=== PATIENT | female | born 1935 | race Caucasian/White ===

== ENCOUNTER 2016-10-05 23:43 | Emergency (ER) | payer OTHER ==
[2016-10-06] MEDS ORDERED: ONDANSETRON HCL/PF 4 MG/ 2ML VIAL IVP ONE (00:11)
[2016-10-06] MEDS ORDERED: DEXTROSE 5 % AND 0.9 % NACL 1,000 ML IV ONE (00:20)
[2016-10-06 00:28] LABS: eGFR (African) > 60; eGFR (Non-African) > 60
[2016-10-06 00:29] LABS: BASOPHILS % 0.5 (0.0-1.5); EOSINOPHILS % 2.6 % (0.0-6.8); LYMPHOCYTES # 0.4 # k/uL (0.6-4.0); MEAN CORPUSCULAR HEMOGLOBIN 35.7 pg (28.0-34.0); MONOCYTES # 0.2 # k/uL (0.0-0.9); MONOCYTES % 3.8 % (0.0-11.0)
[2016-10-06] MEDS ORDERED: DEXTROSE 5 % AND 0.9 % NACL 1,000 ML IV SCH (01:00)
[2016-10-06 03:32] VITALS: BP 156/47
--- NOTE | 2016-10-06 06:56 | ED Physician Documentation ---
General Adult - HISTORIAN Historian: patient - HPI Stated Complaint: low blood sugar Chief Complaint: General Adult Additional Information: blood sugar 70 Onset: hours (2) Timing: still present Severity: moderate Modifying Factors: nausea Context: normal daily routine Quality: nausea Location: epigastic area Further Comments: no - ROS CONST: no problems EYES/ENT: none CVS/RESP: none GI/: none MS/SKIN/LYMPH: none NEURO/PSYCH: denies: headache, fainting, dizziness, tingling, numbness, difficulty walking, difficulty with speech, anxiety, depression - PAST HX Past History: hypertension Other History: diabetes Type 2 Surgeries/Procedures: none Immunizations: referred to PCP Allergies/Adverse Reactions: Allergies Allergy/AdvReac Type Severity Reaction Status Date / Time No Known Allergies Allergy Verified 10/06/16 00:06 Home Medications: Ambulatory Orders Medication Instructions Recorded Acetaminophen [Tylenol Extra 1,000 mg PO QDAY 11/01/14 Strength] Alendronate Sodium [Fosamax] 70 mg PO WEEK 11/01/14 Aspirin [Abigail] 81 mg PO DAILY 11/01/14 Atorvastatin Calcium [Lipitor] 40 mg PO QDAY 11/01/14 Clonidine HCl [Catapres] 0.1 mg PO BID 11/01/14 Clopidogrel Bisulfate [Plavix] 75 mg PO QD 11/01/14 Diclofenac Sodium [Voltaren] 75 mg PO BID 11/01/14 Furosemide [Lasix] 40 mg PO BID 11/01/14 Insulin Aspart [Novolog] 7 unit SQ TID 11/01/14 Levothyroxine Sodium [Synthroid] 75 mcg PO 7HS 11/01/14 Lisinopril [Prinivil] 20 mg PO QD 11/01/14 Loratadine [Claritin] 10 mg PO 7HS 11/01/14 Multivitamin [Tab-A-German] 1 each PO DAILY 11/01/14 Potassium Chloride [Kaochlor] 99 meq PO DAILY 11/01/14 traZODone HCL [Desyrel] 50 mg PO HS 11/01/14 Insulin Glargine,Hum.rec.anlog 17 unit SQ AM 10/06/16 [Lantus Solostar] - SOCIAL HX Smoking History: non-smoker Alcohol Use: none Drug Use: none - FAMILY HX Family History: Yes - VITAL SIGNS Vital Signs: Vital Signs Temp Pulse Resp BP Pulse Ox 98.6 F 98 H 16 156/47 98 10/06/16 01:40 10/06/16 01:40 10/06/16 01:40 10/06/16 01:40 10/06/16 01:40 - REVIEWED ASSESSMENTS Nursing Assessment Reviewed: Yes Vitals Reviewed: Yes Progress - Results/Orders Results/Orders: see orders - Progress Progress: pt. stable entire time in er Critical Care Note - Critical Care Note Total Time (mins): 0 ED Results Lab/Radiology - Lab Results Lab Results: Lab Results 10/06/16 10/06/16 00:09 00:09 WBC 5.80 K/ul K/ul (4.00-12.00) RBC 3.49 M/ul L M/ul (3.90-5.20) Hgb 12.5 g/dL g/dL (12.0-16.0) Hct 37.3 % % (34.5-46.5) MCV 106.8 fl H fl (80.0-100.0) MCH 35.7 pg H pg (28.0-34.0) MCHC 33.4 g/dL g/dL (30.0-36.0) RDW 13.9 % % (11.3-14.3) Plt Count 255 K/mm3 K/mm3 (130-400) Neut % (Auto) 86.3 % H % (39.0-79.0) Lymph % (Auto) 6.1 % L % (16.0-50.0) [place] % (Auto) 3.8 % % (0.0-11.0) Eos % (Auto) 2.6 % % (0.0-6.8) Baso % (Auto) 0.5 (0.0-1.5) Neut # 5.0 # k/uL # k/uL (1.4-7.7) Lymph # 0.4 # k/uL L # k/uL (0.6-4.0) [place] # 0.2 # k/uL # k/uL (0.0-0.9) Eos # 0.2 # k/uL # k/uL (0.0-0.6) Baso # 0.0 # k/uL # k/uL (0.0-0.5) Reactive Lymphs % 0.6 % % (0.0-5.0) Reactive Lymphs # 0.0 # k/uL # k/uL (0.0-0.8) Sodium 137 mmol/L mmol/L (136-145) Potassium 4.3 mmol/L mmol/L (3.5-5.0) Chloride 109 mmol/L mmol/L (98-110) Carbon Dioxide 29 mmol/L mmol/L (20-32) BUN 39 mg/dL H mg/dL (10-26) Creatinine 1.1 mg/dL mg/dL (0.4-1.5) Estimated Creat Clear 35 Est GFR ( Amer) > 60 (60 - ) Est GFR (Non-Af Amer) > 60 (60 - ) Glucose 86 mg/dL mg/dL (70-99) Calcium 10.8 mg/dL H mg/dL (8.5-10.5) Total Bilirubin 0.4 mg/dL mg/dL (0.2-1.2) AST 26 U/L U/L (0-41) ALT 21 U/L U/L (0-45) Alkaline Phosphatase 66 U/L U/L (46-116) Total Protein 8.0 g/dL g/dL (6.0-8.5) Albumin 4.9 g/dL g/dL (3.0-5.5) Amylase 158 U/L H U/L (20-104) - Radiology Radiology Impressions: see report - Orders Orders: ED Orders Category Date Time Status Place Saline Lock/IV Now Care 10/06/16 00:09 Active AMYLASE Routine Lab 10/06/16 00:09 Completed CBC/PLATELET/DIFF Routine Lab 10/06/16 00:09 Completed CMP Routine Lab 10/06/16 00:09 Completed URINALYSIS Routine Lab 10/06/16 00:09 Ordered Chem Sticks Med 10/06/16 07:30 Discontinued 1 each CHEMQ Chem Sticks Med 10/06/16 07:30 Ordered 1 each CHEMQID Dextrose 5 % and 0.9 % NaCl [D5ns] 1,000 ml Med 10/06/16 00:20 Discontinued IV .STK-MED Dextrose 5 % and 0.9 % NaCl [D5ns] 1,000 ml Med 10/06/16 01:00 Discontinued IV Q8H Ondansetron HCl/Pf [Zofran 4 mg/2 ml] Med 10/06/16 00:11 Discontinued 8 mg IVP NOW ONE General Adult Physical Exam - PHYSICAL EXAM GENERAL APPEARANCE: no distress EENT: eye inspection normal, ENT inspection normal, pharynx normal, no signs of dehydration, UGO, no nystagmus, TM's nml NECK: normal inspection, thyroid normal, supple RESPIRATORY: no resp distress, chest non-tender, breath sounds normal CVS: reg rate & rhythm, heart sounds normal, equal pulses, no murmur, no gallop , PMI nml, no JVD ABDOMEN: soft, no organomegaly, normal bowel sounds, no abdominal bruit, no distension, non-tender BACK: normal inspection, no CVA tenderness SKIN: warm/dry, normal color EXTREMITIES: non-tender, normal range of motion, no evidence of injury, no edema NEURO: oriented X3, CN's nml as tested, motor nml, sensation nml, mood/affect nml, cognition normal Discharge Clincal Impression: Hypoglycemia Referrals: Paul Forbes MD [Primary Care Provider] - 2 Days Home Medications: Ambulatory Orders Acetaminophen [Tylenol Extra Strength] 1,000 mg PO QDAY 11/01/14 Alendronate Sodium [Fosamax] 70 mg PO WEEK 11/01/14 Aspirin [Abigail] 81 mg PO DAILY 11/01/14 Atorvastatin Calcium [Lipitor] 40 mg PO QDAY 11/01/14 Clonidine HCl [Catapres] 0.1 mg PO BID 11/01/14 Clopidogrel Bisulfate [Plavix] 75 mg PO QD 11/01/14 Diclofenac Sodium [Voltaren] 75 mg PO BID 11/01/14 Furosemide [Lasix] 40 mg PO BID 11/01/14 Insulin Aspart [Novolog] 7 unit SQ TID 11/01/14 Levothyroxine Sodium [Synthroid] 75 mcg PO 7HS 11/01/14 Lisinopril [Prinivil] 20 mg PO QD 11/01/14 Loratadine [Claritin] 10 mg PO 7HS 11/01/14 Multivitamin [Tab-A-German] 1 each PO DAILY 11/01/14 Potassium Chloride [Kaochlor] 99 meq PO DAILY 11/01/14 traZODone HCL [Desyrel] 50 mg PO HS 11/01/14 Insulin Glargine,Hum.rec.anlog [Constance Diaz] 17 unit SQ AM 10/06/16 Comments: discharged with scripts Condition: Stable Disposition: 01 HOME, SELF-CARE Decision to Admit: NO Decision Time: 01:35
== END 2016-10-06 00:40 | disposition home or self-care (01) ==
LOC: ED 23:43
DX: E11.649 Type 2 diabetes mellitus with hypoglycemia without coma (principal); Z79.4 Long term (current) use of insulin; I10 Essential (primary) hypertension
CPT/HCPCS: 80053; 82150; 85025; J2405; J7042; 96361; 96374; 99283; 99284; S1016

== ENCOUNTER 2018-11-18 09:44 | Outpatient (CLI) | payer OTHER ==
[2018-11-18 10:29] LABS: eGFR (Non-African) > 60
--- NOTE | 2018-11-18 10:30 | Diagnostic Imaging Report ---
SABRA ALEGRIA [facility] [address] [facility].[address] [address] Report Submission Date: Nov 18, 2018 10:26:35 AM CDT Patient Study Name: MARCELINA ORELLANA Date: Nov 18, 2018 10:03:03 AM CDT Modality Type: DX Gender: F Description: CHEST 2VIEW : 31 Institution: [facility] Physician: SABRA ALEGRIA Exam: Chest 2 views. History: Cough. No previous studies are available for comparison. Lung shah are hyperaerated with flattening of the diaphragms noted. No johnson consolidation or effusion is seen. Heart size is normal with atherosclerotic plaque seen in the aorta. Sternotomy wires indicate previous thoracotomy. Impression: No johnson consolidation or effusion. Electronically signed on Nov 18, 2018 10:26:35 AM CDT by: Timbo DUENAS
== END 2018-11-18 09:46 ==
LOC: LAB 09:44
PROVIDERS: ATTEND Family Medicine
DX: E11.9 Type 2 diabetes mellitus without complications (principal); I10 Essential (primary) hypertension; R05 Cough; Z79.4 Long term (current) use of insulin
CPT/HCPCS: 36415; 71046; 80053; 80061; 82043; 83036; 84443

== ENCOUNTER 2019-06-25 13:22 | Inpatient (IN) | payer OTHER ==
--- NOTE | 2019-06-25 13:58 | ED Physician Documentation ---
General Adult - HISTORIAN Historian: patient, spouse - HPI Stated Complaint: leg swelling Chief Complaint: General Adult Onset: days ago Timing: still present Severity: moderate Further Comments: yes (Pt is an 83 yo female with b/l leg swelling, which is painful. Pain has been getting worse for several days. Pt has been using support hose and keeping legs elevated, which usually helps, but now it has not been helping. Pt has some redness and soreness at ankles and feet b/l. Pt states that the weight of her sheets and blankets is painfule to her legs. Pt does not c/o sob or chest pain.) - ROS CONST: no problems EYES/ENT: none CVS/RESP: none MS/SKIN/LYMPH: leg swelling (b/l) - PAST HX Past History: other (CAD, CHF, HLD, HTN, Neuropathy, DM, hypothyroidism) Surgeries/Procedures: cardiac bypass, cardiac stent, hysterectomy, other (tonsillectomy) Allergies/Adverse Reactions: Allergies Allergy/AdvReac Type Severity Reaction Status Date / Time Penicillins Allergy Verified 06/25/19 13:55 Home Medications: Ambulatory Orders Medication Instructions Recorded Acetaminophen [Tylenol Extra 1,000 mg PO QDAY 11/01/14 Strength] Alendronate Sodium [Fosamax] 70 mg PO WEEK 11/01/14 Aspirin [Abigail] 81 mg PO DAILY 11/01/14 Atorvastatin Calcium [Lipitor] 40 mg PO QDAY 11/01/14 Clonidine HCl [Catapres] 0.1 mg PO BID 11/01/14 Clopidogrel Bisulfate [Plavix] 75 mg PO QD 11/01/14 Diclofenac Sodium [Voltaren] 75 mg PO BID 11/01/14 Furosemide [Lasix] 40 mg PO BID 11/01/14 Insulin Aspart [Novolog] 7 unit SQ TID 11/01/14 Levothyroxine Sodium [Synthroid] 75 mcg PO 7HS 11/01/14 Lisinopril [Prinivil] 20 mg PO QD 11/01/14 Loratadine [Claritin] 10 mg PO 7HS 11/01/14 Multivitamin [Tab-A-German] 1 each PO DAILY 11/01/14 Potassium Chloride [Kaochlor] 99 meq PO DAILY 11/01/14 traZODone HCL [Desyrel] 50 mg PO HS 11/01/14 Insulin Glargine,Hum.rec.anlog 17 unit SQ AM 10/06/16 [Constance Diaz] - SOCIAL HX Smoking History: non-smoker - FAMILY HX Family History: No - VITAL SIGNS Vital Signs: Vital Signs Temp Pulse Resp BP Pulse Ox 156/47 10/06/16 01:40 - REVIEWED ASSESSMENTS Nursing Assessment Reviewed: Yes Vitals Reviewed: Yes Progress - Progress Progress: lasix 20 mg IV regular insulin 4 mg SC admit to Dr. Forbes, b/l LE edema, ? early LE cellulitis, hyperglycemia, dehydration, elevated BNP - EKG/XRAY/CT EKG: NSR (HR= 69, LBBB) XRAY: chest (cardiomegally, no infiltrate, no effusion) General Adult Physical Exam - PHYSICAL EXAM GENERAL APPEARANCE: moderate distress EENT: pharynx normal NECK: normal inspection RESPIRATORY: no resp distress, chest non-tender, breath sounds normal CVS: reg rate & rhythm, heart sounds normal ABDOMEN: soft, no organomegaly, normal bowel sounds BACK: normal inspection, no CVA tenderness SKIN: warm/dry, other (erythema b/l ankles/feet) EXTREMITIES: edema (2+ b/l LE edema, tender to touch) NEURO: oriented X3, motor nml, sensation nml Discharge Clincal Impression: DM, Hyperglycemia, elevated BNP, b/l LE edema, possible early cellulitis, dehydration Referrals: Paul Forbes MD [Primary Care Provider] - Condition: Stable Disposition: XFER [facility] Decision to Admit: [id number] Decision Time: 16:35
[2019-06-25 14:14] LABS: eGFR (Non-African) 41
[2019-06-25 14:16] LABS: BASOPHILS % 0.4 % (0.0-1.5); NEUTROPHILS # 4.5 # k/uL (1.4-7.7)
[2019-06-25] MEDS: FUROSEMIDE 40 MG/4 ML VIAL IVP ONE ×2 (15:31→15:33)
--- NOTE | 2019-06-25 15:44 | Diagnostic Imaging Report ---
PATIENT MR#: [id number] PATIENT PATIENT NAME: MARCELINA ORELLANA DATE OF : 1935 REFERRING PHYSICIAN: Aguila Mckeon EXAM DATE: 06/25/2019 ACCESSION NUMBER: [id number] EXAM DESCRIPTION: CHEST 1VIEW CHEST ONE VIEW CLINICAL INDICATION: WEAKNESS AND SWELLING BILAT LEGS HX OF BYPASS (Hx) / Note time : 06/25/2019 3:33:19 PM User : Deena Schmitz WEAKNESS AND SWELLING BILAT LEGS HX OF BYPASS (DICOM Hx) (D ICOM Hx) FINDINGS: Frontal view of the chest compared to prior for November 18, 2017 shows hyperinflated lung shah bila terally. There is no consolidation, pleural effusion or pneumothorax. Heart size is enlarged. There is atherosclerotic calcification to the thoracic aorta. Midline sternal wires are present. IMPRESSION: Hyper-inflated lung field without consolidation Cardiomegaly Read by: Dr. Perico Ryan Transcribed by: Transcribed Date: Electronically signed by: Dr. Perico Ryan Date signed: 06/25/2019 3:43:36 PM
--- NOTE | 2019-06-25 15:45 | Diagnostic Imaging Report ---
PATIENT MR#: [id number] PATIENT PATIENT NAME: MARCELINA ORELLANA DATE OF : 1935 REFERRING PHYSICIAN: Aguila Mckeon EXAM DATE: 06/25/2019 ACCESSION NUMBER: [id number] EXAM DESCRIPTION: US U OR L EXT VEINS BILAT *Ultrasound bilateral lower extremity venous duplex Doppler Indication: BILAT VLE, NO EVIDENCE FOR DVT (Hx) / Note time : 06/25/2019 3:39:05 PM User : Juanis Mendoza BILAT VLE, NO EVIDENCE FOR DVT (DICOM Hx) (DICOM Hx) Findings: Ultrasonographic examination with spectral analysis demonstrates the bilateral common femoral veins, superficial femoral veins, popliteal and peroneal veins to be normal in color-flow, compressibility, Doppler wave form an d augmentation. Normal color-flow to the bilateral posterior tibial veins is demonstrated. There is no evidence of de ep venous thrombosis Impression: No evidence of deep venous thrombosis. Read by: Dr. Perico Ryan Transcribed by: Transcribed Date: Electronically signed by: Dr. Perico Ryan Date signed: 06/25/2019 3:44:36 PM
[2019-06-25] MEDS ORDERED: INSULIN REGULAR, HUMAN 100 UNIT/ML 10ML VIAL SQ ONE ×3 (15:50→18:00)
[2019-06-25] MEDS ORDERED: SENNOSIDES/DOCUSATE 8.6/50 MG 1 EACH TABLET PO PRN (17:30)
[2019-06-25] MEDS: 0.9 % SODIUM CHLORIDE 1,000 ML IV SCH (18:49)
[2019-06-25 18:55] VITALS: BMI 19.3
--- NOTE | 2019-06-25 20:05 | History and Physical Report ---
History of Present Illnes - History of Present Illness Reason for Visit: pain in legs History of Present Illness: 83-year-old white female who states the last night she started to develop some pain in her legs bilaterally. Patient stated the pain began in the left lower leg associated with some redness and tenderness. Patient denies any fever or chills. Patient stated the pain did move over into the right leg earlier this morning. Patient denies any precipitating factor that she is aware. Patient does have some chronic intermittent peel edema. Patient stated she developed some swelling in her legs. Patient could not stand have any pressure against the legs. Patient subsequently came to the emergency room for further evaluation and treatment. Patient denies any trauma or bites to the leg that she is aware. In the ED patient was felt to possibly have some congestive heart failure bec ause of some cardiomegaly seen on a chest x-ray and elevated BNP. However patient denies that she was have any orthopnea symptoms shortness of breath chest pain chest pressure cough. Patient states that the swelling in her legs have been worse but she is not even anything that has a lot of salt in it. Patient does have diabetes mellitus and chronic renal insufficiency. Patient was noted to have some erythema and tenderness to her lower leg. It was felt that she was possibly developing an early cellulitis. Patient being diabetic have a history of coronary artery disease and because of her age and debilitated condition it was elected to go ahead and admitted to the hospital for further care and evaluation. 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) ENT: Other (tinnitus) Renal/: Chronic renal insuff, Other (chronic recurrent UTIs) Endocrine: Diabetes (type 2 with retinopathy), Hypothyroidism - Past Surgical History Past Surgical History: CABG, Cataract Removal, Hysterectomy, Other (tonsil and adenoiectomy, arthroscopy left knee, Cardiac stinting 3 vessels) - Past Family History Mother Family History: Father Family History: Sister 1 Family History: Other (celiac disease) - Past Social History Smoke: No Occupation: retired Alcohol: None Drugs: None Lives: Alone Domestic Violence: Negative - Health Maintenance Health Maintenance: Cholesterol, Influenza Vaccine, Pneumococcal Vaccine Influenza Vaccine: Current for this Influenza Season Pneumonia Vaccine: Yes - Unable to Obtain History Unable to Obtain: No Review of Systems - Review of Systems Constitutional: negative: Fever, Chills, Sweats, Weakness Eyes: negative: pain, vision change, conjunctivae inflammation ENT: Other (chronic tinnitus). negative: Ear Pain, Ear Discharge, Nose Pain, Nose Discharge, Nose Congestion, Mouth Pain, Mouth Swelling, Throat Pain, Throat Swelling Respiratory: negative: Cough, Dry, Shortness of Breath, SOB with Excertion, Sputum, Wheezing Cardiovascular: negative: Chest Pain, Palpitations, Paroxysmal Noc. Dyspnea, Light Headedness Gastrointestinal: negative: Nausea, Vomiting, Abdominal Pain, Diarrhea, Constipation, Melena, Hematochezia Genitourinary: negative: Dysuria, Frequency, Incontinence, Hematuria, Retention Musculoskeletal: negative: Neck Pain, Shoulder Pain, Arm Pain, Back Pain Skin: Rash Neurological: negative: Weakness, Numbness, Incoordination, Confusion, Seizures - Medications/Allergies Allergies/Adverse Reactions: Allergies Allergy/AdvReac Type Severity Reaction Status Date / Time Penicillins Allergy Verified 06/25/19 13:55 Home Medications: Home Medications Calcium Carb 600Mg [Caltrate] 600 mg PO DAILY 06/25/19 Clonidine HCl [Catapres] 2 tab PO HS 06/25/19 Furosemide [Lasix] 20 mg PO 1300 06/25/19 Insulin Glargine,Hum.rec.anlog [Loren Gee-Ayo] 16 unit SQ AM 06/25/19 Sennosides/Docusate Sodium [Docusate Sodium-Senna Tablet] 2 tab PO PRN PRN 06/25/19 amLODIPine BESYLATE [Norvasc] 2.5 mg PO DAILY 06/25/19 Current Inpatient Medications: Current Inpatient Medications Acetaminophen (Tylenol Extra Strength) 1,000 mg PO QDAY [facility] Stop: 07/26/19 08:59 Amlodipine Besylate (Norvasc) 2.5 mg PO DAILY [facility] Stop: 07/26/19 08:59 Aspirin (Abigail) 81 mg PO DAILY [facility] Stop: 07/26/19 08:59 Atorvastatin Calcium (Lipitor) 40 mg PO HS [facility] Stop: 07/25/19 20:59 Clonidine HCl (Catapress) mg PO AM [facility] Stop: 07/26/19 08:59 Clonidine HCl (Catapress) 0.2 mg PO HS [facility] Stop: 07/25/19 20:59 Furosemide (Lasix) 40 mg IVP Q12H [facility] Stop: 07/26/19 07:59 Gabapentin (Neurontin) 100 mg PO QID [facility] Stop: 07/25/19 20:59 Levofloxacin/Dextrose (Levaquin) 250 mg in 50 mls @ 100 mls/hr IV Q24H [facility] Stop: 07/25/19 17:29 Sodium Chloride (Normal Saline) 1,000 mls @ 100 mls/hr IV Q10H [facility] Stop: 07/25/19 17:29 Last Admin: 06/25/19 18:49 Dose: 100 mls/hr Insulin Aspart (Novolog) 0 unit SQ TID [facility]; Protocol Stop: 07/25/19 18:59 Insulin Glargine (Basaglar Kwik-Pen) 16 unit SQ AM [facility] Stop: 07/26/19 08:59 Levothyroxine Sodium (Synthroid) 75 mcg PO 0700 [facility] Stop: 07/26/19 06:59 Lisinopril (Prinivil) 20 mg PO BID [facility] Stop: 07/25/19 20:59 Loratadine (Claritin) 10 mg PO HS [facility] Stop: 07/25/19 20:59 Multivitamins (Tab-A-German) 1 each PO DAILY [facility] Stop: 07/26/19 08:59 Nitrofurantoin Macrocrystals (Macrobid) 50 mg PO DAILY [facility] Stop: 07/26/19 08:59 Senna/Docusate Sodium (Senna Plus Tablet) each PO PRN PRN PRN Reason: Constipation Stop: 07/25/19 17:29 Exam - Exam Vital Signs: Vital Signs (72 hours) 06/25/19 06/25/19 06/25/19 13:30 18:08 18:50 Temperature 99.4 F 99.3 F 99.3 F Pulse Rate [ 90 Right Pulse ox] Pulse Rate [ 86 86 Right] Respiratory 16 18 18 Rate Blood Pressure 167/39 144/55 [Right Arm] O2 Sat by Pulse 99 100 100 Oximetry 06/25/19 18:57 Temperature 99.2 F Pulse Rate [ Right Pulse ox] Pulse Rate [ 57 L Right] Respiratory 16 Rate Blood Pressure 165/42 [Right Arm] O2 Sat by Pulse 100 Oximetry General: Alert, Oriented to Person, Oriented to Place, Oriented to Time, Cooperative, Mild distress HEENT: Atraumatic, PERRLA, EOMI, Mouth Mucous membr. moist/[place], Nose Mucous membr. moist/[place] Neck: Normal Range of Motion Carotids: WNL Thyroid: WNL Lungs: Clear to auscultation, Normal air movement, Speaks full Sentences Cardiovascular: Regular rate, Normal S1, Normal S2, No murmurs Murmur: Diastolic Murmur (mitral regurgitation) Murmur Location: [place] [facility] Murmur Grade: II Abdomen: Normal bowel sounds, Soft, No tenderness, No hepatospenomegaly, No masses Integumentary: Normal, [place], Warm, Dry Extremities: No clubbing, No cyanosis, No edema, Normal pulses, No tenderness/swelling Neurological: Normal gait, Normal speech, Strength Equal Bilat, Normal tone, Sensation intact, Cranial nerves 3-12 NL, Reflexes 2+ Psych/Mental Status: Mental status NL, Mood NL, Appropriate Affect, Intact Judgment - Laboratory Results Laboratory Results: Laboratory Results 06/25/19 06/25/19 06/25/19 14:00 14:00 14:00 WBC 6.40 RBC 3.25 L Hgb 11.6 Hct 33.7 L MCV 104.0 H MCH 35.7 H MCHC 34.4 RDW 12.5 Plt Count 222 Neut % (Auto) 70.1 Lymph % (Auto) 14.1 L [place] % (Auto) 13.9 H Eos % (Auto) 1.5 Baso % (Auto) 0.4 Neut # (Auto) 4.5 Lymph # (Auto) 0.9 [place] # (Auto) 0.9 Eos # (Auto) 0.1 Baso # (Auto) 0.0 PT 10.7 INR 1.03 APTT 25.5 D-Dimer Sodium 139 Potassium 4.2 Chloride 100 Carbon Dioxide 28 Anion Gap 15.2 BUN 55 H Creatinine 1.30 H Est GFR ( Amer) > 60 Est GFR (Non-Af Amer) 41 L Glucose 399 H Calcium 9.6 Total Bilirubin 0.6 AST 49 H ALT 28 Alkaline Phosphatase 73 Troponin I NT-Pro-B Natriuret Pep Total Protein 7.7 Albumin 4.5 06/25/19 14:00 WBC RBC Hgb Hct MCV MCH MCHC RDW Plt Count Neut % (Auto) Lymph % (Auto) [place] % (Auto) Eos % (Auto) Baso % (Auto) Neut # (Auto) Lymph # (Auto) [place] # (Auto) Eos # (Auto) Baso # (Auto) PT INR APTT D-Dimer 615 Sodium Potassium Chloride Carbon Dioxide Anion Gap BUN Creatinine Est GFR ( Amer) Est GFR (Non-Af Amer) Glucose Calcium Total Bilirubin AST ALT Alkaline Phosphatase Troponin I 0.024 NT-Pro-B Natriuret Pep 2360.2 H Total Protein Albumin Assessment/Plan - Assessment/Plan (1) Cellulitis of leg without foot, left Status: Acute Current Visit: Yes (2) Cellulitis of leg without foot, right Status: Acute Current Visit: Yes (3) Essential hypertension Status: Acute Current Visit: Yes (4) CAD (coronary artery disease) Status: Acute Current Visit: Yes (5) PVD (peripheral vascular disease) Status: Acute Current Visit: Yes (6) Diabetes type 2, uncontrolled Status: Acute Current Visit: Yes VTE Assessment - RISK FACTOR SCORE VTE RISK FACTOR SCORES: AGE OVER 60 YEARS, ANTICIPATED BED CONFINEMENT OR IMMOBILIZATION > 24 HOURS - RISK VTE MODERATE RISK: SCORE OF 2 (RISK PROXIMAL DVT 2-4%) PROPHYAXIS NEEDED
[2019-06-25] MEDS ORDERED: cloNIDine HCL 0.1 MG TABLET PO SCH (21:00)
[2019-06-25] MEDS ORDERED: LORATADINE 10 MG TABLET PO SCH (21:00)
[2019-06-25] MEDS ORDERED: ATORVASTATIN CALCIUM 20 MG TABLET PO SCH (21:00)
[2019-06-25] MEDS: GABAPENTIN 100 MG CAPSULE PO SCH (21:10)
[2019-06-25] MEDS: LISINOPRIL 20 MG TABLET PO SCH (21:14)
[2019-06-25] MEDS: INSULIN ASPART 100 UNIT/ML INSULN.PEN SQ SCH (22:00)
[2019-06-26] MEDS: 0.9 % SODIUM CHLORIDE 1,000 ML IV SCH (03:55)
[2019-06-26 06:30] LABS: APPEARANCE,URINE CLEAR (CLEAR); COLOR,URINE YELLOW (YELLOW); OCCULT BLOOD,URINE NEGATIVE (NEGATIVE); UROBILINOGEN URINE 0.2 Eu (0.2-1.0)
[2019-06-26] MEDS ORDERED: LEVOTHYROXINE SODIUM 50 MCG TABLET PO SCH (07:00)
[2019-06-26 07:01] LABS: BASOPHILS % 0.4 % (0.0-1.5); NEUTROPHILS # 1.7 # k/uL (1.4-7.7); eGFR (Non-African) > 60
[2019-06-26] MEDS ORDERED: INSULIN REGULAR, HUMAN 100 UNIT/ML 10ML VIAL SQ SCH (07:30)
[2019-06-26] MEDS ORDERED: FUROSEMIDE 40 MG/4 ML VIAL IVP SCH (08:00)
[2019-06-26] MEDS ORDERED: LISINOPRIL 20 MG TABLET PO ONE (08:38)
[2019-06-26] MEDS ORDERED: POTASSIUM CHLORIDE 20 MEQ TABLET.ER ONE (08:38)
[2019-06-26] MEDS ORDERED: INSULIN GLARGINE,HUM.REC.ANLOG 100 UNIT/ML PEN.INJCTR SQ ONE (08:40)
[2019-06-26] MEDS: GABAPENTIN 100 MG CAPSULE PO SCH (08:51)
[2019-06-26] MEDS: LISINOPRIL 20 MG TABLET PO SCH (08:51)
[2019-06-26] MEDS: INSULIN ASPART 100 UNIT/ML INSULN.PEN SQ SCH (08:58)
[2019-06-26] MEDS ORDERED: ASPIRIN 81 MG CHEW TAB PO SCH (09:00)
[2019-06-26] MEDS ORDERED: INSULIN GLARGINE,HUM.REC.ANLOG 100 UNIT/ML PEN.INJCTR SQ SCH (09:00)
[2019-06-26] MEDS ORDERED: ENOXAPARIN SODIUM 30 MG/0.3 ML DISP.SYRIN SQ SCH (09:00)
[2019-06-26] MEDS ORDERED: POTASSIUM CHLORIDE 20 MEQ TABLET.ER PO SCH (09:00)
[2019-06-26] MEDS ORDERED: amLODIPine BESYLATE 5 MG TABLET PO SCH (09:00)
[2019-06-26] MEDS ORDERED: NITROFURANTOIN MONO/MACRO 100 MG CAPSULE PO SCH (09:00)
[2019-06-26] MEDS ORDERED: ACETAMINOPHEN 500 MG TABLET PO SCH (09:00)
[2019-06-26] MEDS ORDERED: MULTIVITAMIN 1 EACH TABLET PO SCH (09:00)
[2019-06-26] MEDS ORDERED: cloNIDine HCL 0.1 MG TABLET PO SCH (09:00)
[2019-06-26 09:34] VITALS: BP 144/50
[2019-06-26] MEDS ORDERED: INSULIN ASPART 100 UNIT/ML INSULN.PEN SQ SCH (12:30)
--- NOTE | 2019-07-07 15:18 | Discharge Summary ---
Discharge Summary - Discharge [facility] Admission Date: 06/25/19 (Acute care) Discharge Date: 06/26/19 (Home) Discharge To: Home History of Present Illness: 83-year-old white female who states the last night she started to develop some pain in her legs bilaterally. Patient stated the pain began in the left lower leg associated with some redness and tenderness. Patient denies any fever or chills. Patient stated the pain did move over into the right leg earlier this morning. Patient denies any precipitating factor that she is aware. Patient does have some chronic intermittent peel edema. Patient stated she developed some swelling in her legs. Patient could not stand have any pressure against the legs. Patient subsequently came to the emergency room for further evaluation and treatment. Patient denies any trauma or bites to the leg that she is aware. In the ED patient was felt to possibly have some congestive heart failure because of some cardiomegaly seen on a chest x-ray and elevated BNP. However patient denies that she was have any orthopnea symptoms shortness of breath chest pain chest pressure cough. Patient states that the swelling in her legs have been worse but she is not even anything that has a lot of salt in it. Patient does have diabetes mellitus and chronic renal insufficiency. Patient was noted to have some erythema and tenderness to her lower leg. It was felt that she was possibly developing an early cellulitis. Patient being diabetic have a history of coronary artery disease and because of her age and debilitated condition it was elected to go ahead and admitted to the hospital for further care and evaluation. Condition at Discharge: Stable Home Medications: Ambulatory Orders Medication Instructions Recorded Acetaminophen [Tylenol Extra 1,000 mg PO QDAY 11/01/14 Strength] Aspirin [Abigail] 81 mg PO DAILY 11/01/14 Atorvastatin Calcium [Lipitor] 40 mg PO QDAY 11/01/14 Clonidine HCl [Catapres] 1 tab PO AM 11/01/14 Furosemide [Lasix] 40 mg PO AM 11/01/14 Insulin Aspart [Novolog] 1 unit SQ DIRECTED 11/01/14 Levothyroxine Sodium [Synthroid] 75 mcg PO HS 11/01/14 Lisinopril [Prinivil] 20 mg PO BID 11/01/14 Loratadine [Claritin] 10 mg PO HS 11/01/14 Multivitamin [Tab-A-German] 1 each PO DAILY 11/01/14 Potassium Chloride [Kaochlor] 99 meq PO DAILY 11/01/14 Calcium Carb 600Mg [Caltrate] 600 mg PO DAILY 06/25/19 Clonidine HCl [Catapres] 2 tab PO HS 06/25/19 Furosemide [Lasix] 20 mg PO 1300 06/25/19 Insulin Glargine,Hum.rec.anlog 16 unit SQ AM 06/25/19 [Basaglar Kwik-Pen] Sennosides/Docusate Sodium 2 tab PO PRN PRN 06/25/19 [Docusate Sodium-Senna Tablet] amLODIPine BESYLATE [Norvasc] 2.5 mg PO DAILY 06/25/19 Consultations this Visit: None Procedures this Visit: None Allergies/Adverse Reactions: Allergies Allergy/AdvReac Type Severity Reaction Status Date / Time Penicillins Allergy Verified 06/25/19 13:55 Discharge Summary: 83-year-old white female who is admitted to the emergency room. Patient was found to have cellulitis to her lower extremity. Patient was started on IV Lev aquin. Venous Doppler study was done to rule out possible DVTs. patient did remained afebrile during the hospital stay. Within 24 hours patient legs were improving and looked less erythematous and less warm than on admission. P patient was subsequently discharged home in stable condition.atient wanted to be discharged home even though she was advised to stay for a another day. Patient was maintained on her Macrobid for her urinary tract infection that she had prior to admission. - Final Diagnosis (1) Cellulitis of leg without foot, left Problems: Improved (2) Cellulitis of leg without foot, right Problems: Improved (3) Essential hypertension Problems: Stable on home medication (4) CAD (coronary artery disease) Problems: Stable on home medication
== END 2019-06-26 11:27 | disposition home or self-care (01) | DRG 603 ==
LOC: ED 13:22 → SOUTH 17:44
PROVIDERS: ADMIT Family Medicine; ATTEND Family Medicine
DX: L03.116 Cellulitis of left lower limb (principal); I13.0 Hypertensive heart and chronic kidney disease with heart failure and stage 1 through stage 4 chronic kidney disease, or unspecified chronic kidney disease; L03.115 Cellulitis of right lower limb; I25.10 Atherosclerotic heart disease of native coronary artery without angina pectoris; I50.9 Heart failure, unspecified; E78.5 Hyperlipidemia, unspecified; E11.40 Type 2 diabetes mellitus with diabetic neuropathy, unspecified; E11.65 Type 2 diabetes mellitus with hyperglycemia; E86.0 Dehydration; E11.22 Type 2 diabetes mellitus with diabetic chronic kidney disease; N18.9 Chronic kidney disease, unspecified; I34.0 Nonrheumatic mitral (valve) insufficiency; E11.319 Type 2 diabetes mellitus with unspecified diabetic retinopathy without macular edema; E11.51 Type 2 diabetes mellitus with diabetic peripheral angiopathy without gangrene; E03.9 Hypothyroidism, unspecified; Z95.1 Presence of aortocoronary bypass graft; Z95.5 Presence of coronary angioplasty implant and graft; Z90.710 Acquired absence of both cervix and uterus; Z88.0 Allergy status to penicillin; Z87.440 Personal history of urinary (tract) infections; Z98.49 Cataract extraction status, unspecified eye
CPT/HCPCS: 71045; 80053; 81002; 83880; 84484; 85025; 85379; 85610; 85730; 87040; 93005; 93970; A9270; J1650; J1815; J1940; J7030; 99222; 99238; S1016